=== PATIENT | female | born 1975 | race Caucasian/White ===

== ENCOUNTER 2017-06-29 10:46 | Outpatient (CLI) | payer BC | END 2017-06-29 10:47 | disposition home or self-care (01) | LOC: BICMAMMO 10:46 | PROVIDERS: ATTEND Specialist | DX: N64.89 Other specified disorders of breast (principal) | CPT/HCPCS: 77066; G0279 ==

== ENCOUNTER 2017-10-01 08:24 | Outpatient (CLI) | payer BC | END 2017-10-01 08:25 | disposition home or self-care (01) | LOC: BICMAMMO 08:24 | PROVIDERS: ATTEND Specialist | DX: R92.8 Other abnormal and inconclusive findings on diagnostic imaging of breast (principal); Z80.3 Family history of malignant neoplasm of breast; R92.2 Inconclusive mammogram | CPT/HCPCS: G0279 ==

== ENCOUNTER 2017-10-17 14:06 | Outpatient (CLI) | payer BC | END 2017-10-17 14:07 | disposition home or self-care (01) | LOC: BICMRI 14:06 | PROVIDERS: ATTEND Specialist | DX: R92.8 Other abnormal and inconclusive findings on diagnostic imaging of breast (principal) | CPT/HCPCS: C8908 ==

== ENCOUNTER → 2017-10-26 | Day surgery (SDC) | payer BC | LOC: BICULT 12:41 | PROVIDERS: ATTEND Specialist | PROC: 0HBT3ZX Excision of Right Breast, Percutaneous Approach, Diagnostic (ICD-10-PCS; principal; 2017-10-26) | DX: C50.811 Malignant neoplasm of overlapping sites of right female breast (principal); Z17.0 Estrogen receptor positive status [ER+] | CPT/HCPCS: 19083; 88305; 88341; 88342 ==

== ENCOUNTER → 2017-11-01 | Day surgery (SDC) | payer BC ==
[2017-10-31 12:55] VITALS: BMI 47.3
[~2017-11-01] MED LIST: Bupivacaine/Epinephrine 0.25% 30 ML VIAL ONE; CEFAZOLIN/Water 2 GM/20 ML SYRINGE ONE; Dexamethasone 20 MG/5 ML VIAL ONE; Fentanyl 100 MCG/2 ML VIAL ONE; Isosulfan Blue 50 MG/5 ML VIAL ONE; Ketorolac Tromethamine 30 MG/ML VIAL ONE; Lidocaine 1% PF 5 ML VIAL ONE; Lidocaine 2% 10 ML INJ ONE; Midazolam HCl 2 mg/2 ml Vial ONE; Ondansetron HCl/PF 4 MG/2 ML Vial ONE; PROPOFOL 200 MG/20 ML VIAL ONE; Sodium Bicarbonate 2.5 MEQ/5 ML VIAL ONE; ePHEDrine/0.9% NaCl/PF SYRINGE 50 mg/10 ml ONE; traMADol HCl 50 MG TAB ONE
--- NOTE | 2017-11-01 09:51 | ULT ---
ULTRASOUND GUIDED NEEDLE AND WIRE LOCALIZATION RIGHT BREAST MASS: CLINICAL HISTORY: Right breast malignancy. PROCEDURE: Informed consent was obtained. The patient was escorted to the procedural suite. The patient was pl aced in a supine position. The right breast was localized sonographically and the targeted lesion wa s identified at the upper aspect of the right breast. Standard sterile prepping and draping was then performed and a small skin incision was made. Through the incision site, a 10 cm Sandy needle was a dvanced uneventfully through the mass, with the tip of the needle placed just distal to the mass with subsequent wire deployment encasing the mass. Imaging was stored for documentation. There were no procedural complications. The patient was transferred to the nuclear medicine department to undergo subsequent right breast lymphoscintigraphy. Details of the case were telephoned to the patient's surgery, Dr. Urban Bray, at 0913 hours . IMPRESSION: TECHNICALLY SUCCESSFUL ULTRASOUND GUIDED NEEDLE AND WIRE LOCALIZATION OF RIGHT BREAST MASS CODE CR POS: JORDAN
--- NOTE | 2017-11-01 10:54 | NM ---
RIGHT BREAST LYMPHOSCINTIGRAPHY: INDICATION: Right breast malignancy, upper aspect of right breast. PROCEDURE: Informed consent was obtained. The patient was escorted to the nuclear medicine suite. The patient was placed in the supine position and the right breast was prepped and draped in standard sterile fas hion. Subsequently, a total of 0.439 mCi Technetium 99m sulfur colloid subcutaneous was introduced i n 4 separate intradermal injections of the periareolar region of the right breast. There are no proc edural complications. Subsequent scintigraphic imaging was performed. FINDINGS: Scintigraphic imaging reveals activity confining within a right axillary lymph node. IMPRESSION: Technically successful right breast lymphoscintigraphy yielding scintigraphic activity within the rig ht axillary lymph node. POS: JORDAN
--- NOTE | 2017-11-01 14:27 | MMO ---
SPECIMEN RADIOGRAPH RIGHT BREAST: CLINICAL INDICATION: Right breast malignancy status post needle localization and excisional biopsy. FINDINGS: Single radiographed specimen view is submitted which reveals the distal aspect of the curved wire tra versing mammographic, spiculated density with adjacent punctate densities that may relate to calcific ation. IMPRESSION: Specimen radiograph, as above. Telephone call with findings placed to patient's surgery, Dr. Urban Bray, at 1333 hours, in t operating suite 11/01/17. CODE CR POS: REAGAN
--- NOTE | 2017-11-03 00:29 | OP ---
DATE OF OPERATION: 11/01/2017 PREOPERATIVE DIAGNOSIS: Right breast cancer. POSTOPERATIVE DIAGNOSIS: Right breast cancer. OPERATION PERFORMED: Right breast needle localized lumpectomy, sentinel lymph node biopsy. SURGEON: Urban Bray M.D. ANESTHESIA: General endotracheal. INDICATIONS: The patient is a 41-year-old white female. She was recently diagnosed with a small foc us of low grade right breast cancer. She was taken to the operating room at this time for needle loc alized lumpectomy. Ultrasound guided needle localization was performed preoperatively. Lymphoscinti graphy was performed preoperatively as well, identifying sentinel lymph node in the axilla. DESCRIPTION OF OPERATION: Informed consent was obtained. The patient was taken to the operating richard m where general endotracheal anesthesia obtained with the patient in supine position. Right breast a nd axilla were prepped with ChloraPrep and draped in sterile fashion. Prior to prepping the patient, 3 mL of Lymphazurin was infiltrated in the right periareolar subdermal tissue and aggressively massa ged. Attention was turned to the axilla. A transverse incision was created inferior aspect of the axilla and dissection was carried to skin and subcutaneous tissue. The Neoprobe was used to identify the ar ea of maximum radio intensity. I was able to identify a single enlarged and blue stained lymph node. This was dissected circumferentially and all investing lymphatics were divided between clamps and 3 -0 silk ties. The node was densely radioactive. Further examination within the breast revealed only a small focus of radioactivity. There were no ot her blue stained nodes. I dissected and removed two additional lymph nodes with minor amounts of rad ioactivity and these were submitted as well. There were no other visible or palpable lymph nodes. T he wound was closed in layers using 3-0 and 4-0 Monocryl. Dermabond was placed externally. The intraoperative touch prep revealed no evidence of malignancy associated with the nodes. Attention was turned to the breast. The localizing needle was entered the breast at about the 12 o'c lock radian and extended in a somewhat lateral to medial fashion. This was a couple of centimeters s uperior to the nipple areolar complex. The area was locally anesthetized with 0.25% Marcaine with ep inephrine. Transverse incision was created at the needle insertion site extending medially. Dissect ion was carried through skin and subcutaneous tissue. At the point that the needle was 3 cm from its tip, the tissue into which the needle entered was grasped with Allis clamps and dissected so as to o btain a wide lump of tissue around the localizing needle. This was removed intact. The localizing w shahbaz was seen at the far medial aspect of the specimen. Therefore, after the specimen was removed, de cided to obtain a second medial margin. Both specimens were tagged for orientation. Only the initia l specimen was submitted for specimen radiography. Meticulous hemostasis obtained within the wound. It was closed in layers using 3-0 and 4-0 Monocryl suture. Dermabond was placed externally. There were no complications. The patient tolerated the procedure well and was taken to recovery room in st able condition.
== END ==
LOC: SDC 07:35
PROVIDERS: ATTEND Specialist
PROC: 07B60ZX Excision of Left Axillary Lymphatic, Open Approach, Diagnostic (ICD-10-PCS; principal; 2017-11-01)
PROC: 0HBU0ZZ Excision of Left Breast, Open Approach (ICD-10-PCS; principal; 2017-11-01)
DX: C50.811 Malignant neoplasm of overlapping sites of right female breast (principal); G43.909 Migraine, unspecified, not intractable, without status migrainosus; Z17.0 Estrogen receptor positive status [ER+]; Z79.52 Long term (current) use of systemic steroids; Z79.891 Long term (current) use of opiate analgesic; Z79.899 Other long term (current) drug therapy; Z88.8 Allergy status to other drugs, medicaments and biological substances
CPT/HCPCS: 19285; 76098; 78195; 80048; 85025; 88305; 88307; 88331; 88334; 88342; A9541; J0131; J1100; J1885; J2001; J2250; J2405; J2704; J3010; Q9968

== ENCOUNTER 2018-03-08 16:18 | Outpatient (CLI) | payer BC ==
[2018-03-08 17:09] LABS: #Basophils 0.1 thou/uL (0.0-0.2); #Eosinphils 0.1 thou/uL (0.0-0.7); #Lymphocytes 1.4 thou/uL (1.20-3.40); #Monocytes 0.6 thou/uL (0.11-0.59); #Neutrophils 3.5 thou/uL (1.40-6.50); %Basophils 1.1 % (0.0-1.0); %Eosinophils 1.5 % (0.0-10.0); %Lymphocytes 24.9 % (21.0-51.0); %Neutrophils 62.6 % (42.0-75.0); Hemoglobin 13.9 g/dL (12.0-16.0); Mean Corpuscular HGB CONC 34.2 g/dL (32.0-36.0); Mean Corpuscular Hemoglobin 33.4 pg (27.0-31.0); Mean Corpuscular Volume 97.6 fL (78.0-98.0); Mean Platelet Volume 8.1 fL (7.4-10.4); Platelet Count 215 thou/uL (130-400); RBC Distribution Width 11.6 % (11.5-14.5); Red Blood Cell (RBC) Count 4.17 mill/uL (4.20-5.40); White Blood Cell (WBC) Count 5.5 thou/uL (4.8-10.8)
[2018-03-08 17:32] LABS: BHCG - Serum Negative (NEGATIVE); Pregs Control Background? CLEAR/WHITE (CLR/WHITE); Pregs Control Bar Appear? YES (CONTROL BAR)
== END 2018-03-08 16:19 | disposition home or self-care (01) ==
LOC: LABBT 16:18
PROVIDERS: ATTEND Obstetrics & Gynecology
DX: Z01.812 Encounter for preprocedural laboratory examination (principal); Z85.3 Personal history of malignant neoplasm of breast
CPT/HCPCS: 84703; 85025; 86850; 86900; 86901

== ENCOUNTER 2018-03-14 09:50 | Day surgery (SDC) | payer BC ==
[2018-03-06 17:21] VITALS: BMI 44.6
--- NOTE | 2018-03-13 16:24 | HP ---
REASON FOR ADMISSION: Laparoscopic bilateral salpingectomy with IUD removal. HISTORY OF PRESENT ILLNESS: Ms. Guillory is a 42-year-old 8, para 2, AB 6, who has a progesterone releasing IUD. She has recently been diagnosed with infiltrating ductal carcinoma of the breast stage 1, has undergone lumpectomy, XRT, and post chemo and hormone therapy. The patient's tumor was noted to be estrogen positive and progesterone receptor positive. Due to this reason, a progesterone releasing IUD is an inappropriate therapy for her. In addition, the patient's presence of breast cancer, premenopausal increases her risks of both fallopian tube and ovarian malignancy, and the patient desires risk reducing salpingectomy to decrease her risk of ovarian malignancy. PATENT SEARCHER HISTORY: x2, SAB x6. No history of dysplasia or STDs. PAST MEDICAL HISTORY: Significant for hypothyroidism, asthma, and allergic rhinitis as well as stage 1 right breast ductal carcinoma, ER/PA positive, HER2 negative. PAST SURGICAL HISTORY: C-sections, lumpectomy, and D and C. MEDICATIONS: 1. Levothyroxine. 2. Mirena. 3. Montelukast. 4. ProAir HFA. 5. Rizatriptan. 6. Topiramate. 7. Triamcinolone topical. 8. Zyrtec. ALLERGIES: LIDOCAINE. SOCIAL HISTORY: Denies tobacco, alcohol, or IV drug abuse. FAMILY HISTORY: Noncontributory. REVIEW OF SYSTEMS: Noncontributory. PHYSICAL EXAMINATION: GENERAL: White female. No acute distress. HEENT: Within normal limits. LUNGS: Clear to auscultation bilaterally. HEART: Regular rate and rhythm. BREASTS: Well healed right breast lumpectomy scar. ABDOMEN: Soft and nontender without rebound or guarding. Well healed Pfannenstiel incision. GENITALIA: Vulva without lesions. Vagina without discharge. Cervix, nulliparous. Uterus is anteverted 6 weeks' size. No adnexal masses. EXTREMITIES: Without clubbing, cyanosis, or edema. IMPRESSION: The patient with ER/PA positive breast cancer for risk reducing salpingectomy. Also, we will remove IUD at the time of the surgery in the operating room. We will administer appropriate antibiotic and DVT prophylaxis. The patient understands risks and benefits of procedure. Job ID: [id number]
[2018-03-14] MEDS ORDERED: Gabapentin 300 MG CAP ONE (11:06)
[2018-03-14] MEDS ORDERED: Famotidine/PF 20 mg/2ml Vial ONE (11:07)
[2018-03-14] MEDS ORDERED: CeleCOXIB 100 MG CAP ONE (11:08)
[2018-03-14] MEDS ORDERED: CEFAZOLIN 2 GM/50 ML BAG ONE (11:09)
[2018-03-14] MEDS ORDERED: Dexamethasone 20 MG/5 ML VIAL ONE (11:35)
[2018-03-14] MEDS ORDERED: PHENYLEPHRINE-NS 100 MCG/ML 10 ML SYRINGE ONE (11:35)
[2018-03-14] MEDS ORDERED: Glycopyrrolate 0.2 MG/ML 5 ML SYRINGE ONE (11:35)
[2018-03-14] MEDS ORDERED: Ondansetron PF 4 MG/2 ML Vial ONE (11:35)
[2018-03-14] MEDS ORDERED: PROPOFOL 200 MG/20 ML VIAL ONE (11:35)
[2018-03-14] MEDS ORDERED: Fentanyl 100 MCG/2 ML VIAL ONE ×2 (12:03→14:00)
[2018-03-14] MEDS ORDERED: Bupivacaine HCl 0.5%/Epinephrine 1:200,000/PF 30 ml Vial ONE (12:13)
[2018-03-14] MEDS ORDERED: Midazolam HCl 2 mg/2 ml Vial ONE (12:39)
[2018-03-14] MEDS ORDERED: SUGAMMADEX SODIUM 200 MG/2 ML VIAL ONE (13:35)
[2018-03-14] MEDS ORDERED: Promethazine HCl 25 MG/ML VIAL ONE (14:38)
[2018-03-14] MEDS ORDERED: Morphine 2 MG/ML SYRINGE ONE (14:38)
[2018-03-14] MEDS ORDERED: HYDROcodone/Acetaminophen 5/325 mg Tablet ONE (17:07)
--- NOTE | 2018-03-15 15:01 | OP ---
DATE OF PROCEDURE: 03/14/2018 PREOPERATIVE DIAGNOSES: ER-positive, CA-positive breast cancer, premenopausal, with progesterone-releasing intrauterine device. POSTOPERATIVE DIAGNOSES: ER-positive, CA-positive breast cancer, premenopausal, with progesterone-releasing intrauterine device. PROCEDURE PERFORMED: Laparoscopic bilateral risk-reducing salpingectomy with Mirena IUD removal. ANESTHESIA: General endotracheal. ESTIMATED BLOOD LOSS: Less than 10 mL. COMPLICATIONS: None. OPERATIVE FINDINGS: 1. Mirena IUD removed intact from the uterus without difficulty. 2. Bilateral total salpingectomy without obvious evidence of malignancy. 3. Hemostasis with clear urine and counts correct at the end of the procedure. DISPOSITION: Recovery room in good condition. DESCRIPTION OF OPERATIVE PROCEDURE: After obtaining appropriate operative consent, the patient was taken to the operating room, where general endotracheal anesthesia was achieved without difficulty. She was prepped and draped in dorsal lithotomy position. Sidearm speculum was placed in the vagina, and cervix was identified. IUD string grasped and IUD removed intact; it was not sent for pathologic analysis. Mamba manipulator was placed inside. Tenaculum and speculum were removed. The bar machine operator multiple spindle changed his gloves and turned attention to the abdominal portion of the procedure. Straight catheterization occurred with 250 mL of clear urine. 5 mL of Marcaine injected in the base of umbilicus, and a 5 mm skin incision was made. Veress needle was placed inside the abdominal cavity. Insufflation was carried out with carbon dioxide for a maximum pressure of 15, volume of approximately 3.5 L. Optiview 5 mm trocar was introduced into the abdominal cavity confirming the entry into the peritoneal cavity without trauma to the underlying viscera. 8 mm suprapubic 4 cm above the symphysis pubis was placed in the midline trocar and a 5 mm on the patient's left lateral vessels. One small area of omental adhesions to the anterior abdominal wall was taken down using the LigaSure. Uterus was elevated. The patient was placed in Trendelenburg position, and the distal mesosalpinx was coagulated, transected on the left, carried all the way down to its insertion into the uterus, transected across, and removed through the 8 mm trocar site. Identical procedure was carried on the patient's right. Good hemostasis was noted bilaterally. Abdomen was desufflated with carbon dioxide. Trocars were removed x3. Skin was reapproximated using 4-0 Monocryl and Dermabond x3. Hulka manipulator was removed, and the patient was awakened, extubated, and taken to recovery room in good condition. Job ID: [id number]
== END 2018-03-14 17:30 | disposition home or self-care (01) ==
LOC: SDC 09:50
PROVIDERS: ATTEND Obstetrics & Gynecology
DX: Z40.03 Encounter for prophylactic removal of fallopian tube(s) (principal); N73.6 Female pelvic peritoneal adhesions (postinfective); E03.9 Hypothyroidism, unspecified; J45.909 Unspecified asthma, uncomplicated; Z85.3 Personal history of malignant neoplasm of breast; Z79.810 Long term (current) use of selective estrogen receptor modulators (SERMs); Z79.899 Other long term (current) drug therapy; Z88.8 Allergy status to other drugs, medicaments and biological substances; Z97.5 Presence of (intrauterine) contraceptive device
CPT/HCPCS: 88302; 96374; 96375; J0670; J1100; J2250; J2270; J2405; J2550; J2704; J3010; S0028

== ENCOUNTER 2018-10-16 07:55 | Outpatient (CLI) | payer BC ==
--- NOTE | 2018-10-16 15:28 | MMO ---
Bilateral MAMMO Bilat Diag [facility]. CLINICAL HISTORY: Patient is 42 years old and is seen for diagnostic exam. The patient has the following family history of breast cancer: paternal aunt, at age 29. The patient has a history of malignant (generic) in the right breast in October,. The patient has a history of right Ultrasound Guided Core Biopsy in October, - malignant, right Lumpectomy in October, - malignant - w/node dissection and left Ultrasound Guided Core Biopsy in March, - benign. VIEWS: The views performed were: bilateral craniocaudal with tomosynthesis; bilateral mediolateral oblique with tomosynthesis; and bilateral mediolateral with tomosynthesis. FILMS COMPARED: The present examination has been compared to prior imaging studies performed at [facility] on 06/29/2017 and 10/01/2017, and at [facility] on 03/30/2016 and 09/28/2016. MAMMOGRAM FINDINGS: There are scattered fibroglandular densities. There is a post-surgical scar seen in the upper-inner region of the right breast. There are no suspicious masses, suspicious calcifications, or new areas of architectural distortion. IMPRESSION: THERE IS NO MAMMOGRAPHIC EVIDENCE OF MALIGNANCY. A ROUTINE FOLLOW-UP MAMMOGRAM IN 1 YEAR IS RECOMMENDED. THE RESULTS OF THIS EXAM WERE SENT TO THE PATIENT. ACR BI-RADS Category 2 - Benign finding MAMMOGRAPHY NOTE: 1. A negative mammogram report should not delay a biopsy if a dominant of clinically suspicious mass is present. 2. Approximately 10% to 15% of breast cancers are not detected by mammography. 3. Adenosis and dense breasts may obscure an underlying neoplasm. Reported by: UBALDO AN MD Electonically Signed: [id number]
== END 2018-10-16 07:56 | disposition home or self-care (01) ==
LOC: BICMAMMO 07:55
PROVIDERS: ATTEND Specialist
DX: C50.911 Malignant neoplasm of unspecified site of right female breast (principal)
CPT/HCPCS: 77066; G0279

== ENCOUNTER 2019-10-28 08:43 | Outpatient (CLI) | payer BC ==
--- NOTE | 2019-10-28 09:25 | MMO ---
Bilateral MAMMO Bilat Diag [facility]. CLINICAL HISTORY: Patient is 43 years old and is seen for diagnostic exam. The patient has the following family history of breast cancer: paternal aunt, at age 29. The patient has a history of malignant (generic) in the right breast in October,. The patient has a history of right Ultrasound Guided Core Biopsy in October, - malignant, right Lumpectomy in October, - malignant - w/node dissection and left Ultrasound Guided Core Biopsy in March, - benign. VIEWS: The views performed were: bilateral craniocaudal with tomosynthesis; bilateral mediolateral oblique with tomosynthesis; and bilateral mediolateral with tomosynthesis. FILMS COMPARED: The present examination has been compared to prior imaging studies performed at [facility] on 06/29/2017, 10/01/2017 and 10/16/2018, and at [facility] on 09/28/2016. This study has been interpreted with the assistance of computer-aided detection. MAMMOGRAM FINDINGS: There are scattered fibroglandular densities. Finding 1: There are stable post operative changes seen in the right breast. Finding 2: There are biopsy clips seen in both breasts. There are no suspicious masses, suspicious calcifications, or new areas of architectural distortion. IMPRESSION: THERE IS NO MAMMOGRAPHIC EVIDENCE OF MALIGNANCY. A ROUTINE FOLLOW-UP MAMMOGRAM IN 1 YEAR IS RECOMMENDED. THE RESULTS OF THIS EXAM WERE SENT TO THE PATIENT. ACR BI-RADS Category 2 - Benign finding MAMMOGRAPHY NOTE: 1. A negative mammogram report should not delay a biopsy if a dominant of clinically suspicious mass is present. 2. Approximately 10% to 15% of breast cancers are not detected by mammography. 3. Adenosis and dense breasts may obscure an underlying neoplasm. Reported by: TREE CHAPMAN MD Electonically Signed: [id number]
== END 2019-10-28 08:44 | disposition home or self-care (01) ==
LOC: BICMAMMO 08:43
PROVIDERS: ATTEND Specialist
DX: Z08 Encounter for follow-up examination after completed treatment for malignant neoplasm (principal); Z85.3 Personal history of malignant neoplasm of breast
CPT/HCPCS: 77066; G0279

== ENCOUNTER 2022-04-24 08:56 | Outpatient (CLI) | payer BC | END 2022-04-24 08:57 | disposition home or self-care (01) | LOC: BICMAMMO 08:56 | PROVIDERS: ATTEND Specialist | DX: Z08 Encounter for follow-up examination after completed treatment for malignant neoplasm (principal); Z85.3 Personal history of malignant neoplasm of breast; R92.1 Mammographic calcification found on diagnostic imaging of breast | CPT/HCPCS: 77066; G0279 ==

== ENCOUNTER 2022-11-14 13:12 | Outpatient (CLI) | payer BC | END 2022-11-14 13:13 | disposition home or self-care (01) | LOC: BICMAMMO 13:12 | PROVIDERS: ATTEND Specialist | DX: Z08 Encounter for follow-up examination after completed treatment for malignant neoplasm (principal); R92.8 Other abnormal and inconclusive findings on diagnostic imaging of breast; Z85.3 Personal history of malignant neoplasm of breast | CPT/HCPCS: G0279 ==

== ENCOUNTER 2022-12-01 09:27 | Emergency (ER) | payer BC ==
[2022-12-01] MEDS ORDERED: Acetaminophen 500 MG TAB ONE (10:22)
[2022-12-01] MEDS ORDERED: Metoclopramide HCl 10 MG/2 ML VIAL ONE (10:22)
[2022-12-01] MEDS ORDERED: Ketorolac Tromethamine 30 MG/ML VIAL ONE (10:22)
[2022-12-01 11:45] LABS: #Eosinphils 0.1 thou/uL (0.0-0.7); #Monocytes 0.5 thou/uL (0.11-0.59); #Neutrophils 5.3 thou/uL (1.40-6.50); %Basophils 0.2 % (0.0-1.0); %Eosinophils 0.8 % (0.0-10.0); %Monocytes 8.1 % (0.0-10.0); %Neutrophils 83.6 % (42.0-75.0); Hematocrit 42.1 % (36.0-47.0); Hemoglobin 13.3 g/dL (12.0-16.0); Mean Corpuscular HGB CONC 31.6 g/dL (32.0-36.0); Mean Corpuscular Hemoglobin 32.3 pg (27.0-31.0); Mean Corpuscular Volume 102.2 fl (78.0-98.0); Mean Platelet Volume 10.2 fL (7.4-10.4); Platelet Count 129 10x3/uL (130-400); RBC Distribution Width 12.2 % (11.5-14.5); Red Blood Cell (RBC) Count 4.12 mill/uL (4.20-5.40); White Blood Cell (WBC) Count 6.3 10x3/uL (4.8-10.8)
[2022-12-01 11:53] LABS: BHCG - Serum Negative (NEGATIVE); Pregs Control Background? CLEAR/WHITE (CLR/WHITE); Pregs Control Bar Appear? YES (CONTROL BAR)
[2022-12-01 12:04] LABS: ALT (SGPT) 28 U/L (8-55); AST (SGOT) 30 U/L (5-34); Albumin 4.2 g/dL (3.5-5.0); Alkaline Phosphatase 54 U/L (40-110); Anion Gap 14 mmol/L (10-20); BUN (Urea Nitrogen) 13 mg/dL (7.0-18.7); Bilirubin, Total 0.3 mg/dL (0.2-1.2); Calc. Creatinine Clearance 0 mL/min (70-130); Calcium 9.1 mg/dL (7.8-10.44); Carbon Dioxide 16 mmol/L (22-29); Chloride 112 mmol/L (98-107); Estimated GFR 89; Globulin 3.4 g/dL (2.4-3.5); Glucose 89 mg/dL (70-105); Potassium 4.1 mmol/L (3.5-5.1); Protein, Total 7.6 g/dL (6.0-8.3); Sodium 138 mmol/L (136-145)
[2022-12-01 12:19] LABS: Troponin I Less than 0.010 ng/mL (< 0.028)
== END 2022-12-01 12:24 | disposition home or self-care (01) ==
LOC: ERS 09:27
DX: R51.9 Headache, unspecified (principal)
CPT/HCPCS: 36415; 80053; 84484; 84703; 85025; 93005; 96365; 96375; J1885; J2765

== ENCOUNTER 2023-01-07 14:47 | Emergency (ER) | payer BC ==
[2023-01-07 17:13] LABS: BHCG - Serum Negative (NEGATIVE); Pregs Control Background? CLEAR/WHITE (CLR/WHITE); Pregs Control Bar Appear? YES (CONTROL BAR)
[2023-01-07 17:17] LABS: #Eosinphils 0.1 thou/uL (0.0-0.7); #Monocytes 0.4 thou/uL (0.11-0.59); #Neutrophils 3.5 thou/uL (1.40-6.50); %Basophils 0.5 % (0.0-1.0); %Eosinophils 1.2 % (0.0-10.0); %Lymphocytes 28.7 % (21.0-51.0); %Monocytes 7.4 % (0.0-10.0); %Neutrophils 61.8 % (42.0-75.0); Hematocrit 38.8 % (36.0-47.0); Hemoglobin 12.9 g/dL (12.0-16.0); Mean Corpuscular HGB CONC 33.2 g/dL (32.0-36.0); Mean Corpuscular Hemoglobin 32.8 pg (27.0-31.0); Mean Corpuscular Volume 98.7 fl (78.0-98.0); Mean Platelet Volume 10.6 fL (7.4-10.4); Platelet Count 158 10x3/uL (130-400); RBC Distribution Width 11.9 % (11.5-14.5); Red Blood Cell (RBC) Count 3.93 mill/uL (4.20-5.40); White Blood Cell (WBC) Count 5.7 10x3/uL (4.8-10.8)
[2023-01-07 17:28] LABS: INR-International Normal Ratio 0.9; Prothrombin Time 12.2 sec (12.0-14.7)
[2023-01-07 17:35] LABS: PTT 20.1 sec (22.9-36.1)
[2023-01-07 17:37] LABS: ALT (SGPT) 18 U/L (8-55); AST (SGOT) 20 U/L (5-34); Albumin 3.8 g/dL (3.5-5.0); Alkaline Phosphatase 53 U/L (40-110); Anion Gap 15 mmol/L (10-20); BUN (Urea Nitrogen) 14 mg/dL (7.0-18.7); Bilirubin, Total Less than 0.2 mg/dL (0.2-1.2); CK (CPK) 53 U/L (29-168); Calc. Creatinine Clearance 0 mL/min (70-130); Calcium 9.5 mg/dL (7.8-10.44); Carbon Dioxide 19 mmol/L (22-29); Chloride 111 mmol/L (98-107); Estimated GFR 83; Globulin 3.2 g/dL (2.4-3.5); Glucose 108 mg/dL (70-105); Magnesium 2.1 mg/dL (1.6-2.6); Potassium 3.6 mmol/L (3.5-5.1); Sodium 141 mmol/L (136-145)
[2023-01-07 17:41] LABS: Troponin I Less than 0.010 ng/mL (< 0.028)
[2023-01-07] MEDS ORDERED: Acetaminophen 500 MG TAB ONE (18:15)
== END 2023-01-07 19:11 | disposition home or self-care (01) ==
LOC: ERS 14:47
DX: R25.9 Unspecified abnormal involuntary movements (principal); E03.9 Hypothyroidism, unspecified
CPT/HCPCS: 80053; 82550; 83735; 84443; 84484; 84703; 85025; 85610; 85730; 96360; 96361